=== PATIENT | female | born 1965 | race Caucasian/White ===

== ENCOUNTER 2023-08-02 21:32 | Emergency (ER) | payer OTHER, SELFPAY ==
--- NOTE | 2023-08-02 | ECG_ITS ---
Test Reason : HYPERTENSION Blood Pressure : / mmHG Vent. Rate : 072 BPM Atrial Rate : 072 BPM P-R Int : 174 ms QRS Dur : 070 ms QT Int : 402 ms P-R-T Axes : 052 006 036 degrees QTc Int : 440 ms Normal sinus rhythm Normal ECG When compared with ECG of 13-AUG-2015 05:04, No significant change was found Referred By: Generic ED Physician Electronically Signed By:CHRISTOPHER PIEDRA MD
[2023-08-02 21:33] VITALS: BP 190/86; PULSE 69; RESP 18; TEMP 36.7; O2SAT 99; BMI 34.7
--- NOTE | 2023-08-02 21:46 | MHC.EDTECH ---
Patient brought into triage area,EKG taken per order and signed by provider,labs drawn and sent to lab.
[2023-08-02 21:50] LABS: MANUAL DIFF FLAG NO
[2023-08-02 21:52] LABS: Basophils Absolute Auto 0.1 X10*3/uL (0.0-0.2); Basophils Percent Auto 0.8 % (0-2); Eosinophils Absolute Auto 0.2 X10*3/uL (0.0-0.4); Eosinophils Percent Auto 2.6 % (0-4); Hemoglobin 13.3 g/dl (12.0-16.0); Imm Gran Abs Auto 0.02 X10*3/uL (0.00-0.03); Imm Gran Pct Auto 0.3 % (0.0-0.4); Lymphocytes Absolute Auto 2.9 X10*3/uL (1.2-4.9); Lymphocytes Percent Auto 37.3 % (20-40); Mean Corpuscular HGB Conc 33.3 g/dl (31.0-35.0); Mean Corpuscular Hemoglobin 29.8 pg (27.0-33.0); Mean Corpuscular Volume 89.7 fL (80.0-98.0); Mean Platelet Volume 9.3 fL (9.4-12.3); Monocytes Absolute Auto 0.6 X10*3/uL (0.1-1.2); Monocytes Percent Auto 7.8 % (2-11); Neutrophils Percent Auto 51.2 % (45-73); Platelet Count 315 X10*3/uL (160-400); Red Blood Count 4.46 X10*6/uL (4.20-5.50); Red Cell Distribution Width 13.2 % (11.0-16.0); White Blood Count 7.7 X10*3/uL (4.8-10.8)
[2023-08-02 22:09] LABS: Alanine Aminotransferase 15 U/L (0-31); Albumin Level 4.1 g/dL (3.5-5.0); Alkaline Phosphatase 92 U/L (39-117); Anion Gap 15 (12-20); Aspartate Amino Transferase 21 U/L (5-31); Bilirubin Total 0.3 mg/dL (0.0-1.0); Blood Urea Nitrogen 15 mg/dL (9-16); Calcium 9.5 mg/dL (8.4-10.2); Carbon Dioxide 23 mmol/L (22-29); Chloride 105 mmol/L (96-108); Creatinine Clr Calc Pharmacy 59.8; Estimated Glomerular Filt Rate 53; Glucose Random 87 mg/dL (60-115); Potassium 4.7 mmol/L (3.3-5.1); Sodium 138 mmol/L (135-145); Total Protein 7.5 g/dL (6.5-8.0)
[2023-08-03 01:03] VITALS: BP 150/85; PULSE 79; RESP 18; TEMP 36.6; O2SAT 97
--- NOTE | 2023-08-03 01:45 | ED_ITS ---
HPI - General Adult General Chief complaint: General Medical Stated complaint: high blood pressure Time Seen by Provider: 08/03/23 01:10 Source: patient Mode of arrival: ambulatory Limitations: no limitations History of Present Illness HPI narrative: 57 yo female with no hx of HTN but strong fam hx and multiple family members with HTN she has never been on meds before BP up above 150 for days was going to see PCP. Today had headache and family urged her to come. No new changes in life. MD complaint: HTN Onset (ago): day(s) (4) Location: head Radiation: non-radiation Severity: mild Quality: aching Pain Consistency: intermittent Relieving factors: none Exacerbating factors: none Associated symptoms: denies other symptoms Treatments prior to arrival: none Related Data Home Medications ?Medication ?Instructions ?Recorded ?Confirmed naproxen 500 mg tablet 500 mg PO BID 01/04/20 Previous Rx's ?Medication ?Instructions ?Recorded lisinopril 5 mg tablet 5 mg PO DAILY #30 tabs 08/03/23 Allergies Allergy/AdvReac Type Severity Reaction Status Date / Time No Known Allergies Allergy Verified 08/02/23 21:37 [No Known Allergies*] Review of Systems 2 Review of Systems: Constitutional : No Fever, No Chills, No Fatigue ENT/Mouth : No sore throat, No Rhinorrhea Eyes: No Eye Pain, No Swelling, No Redness Cardiovascular : No Chest Pain, No SOB, No Dyspnea on Exertion Respiratory : No Cough, No Sputum Gastrointestinal : No Nausea, No Vomiting, No Diarrhea, No abdominal Pain Genitourinary : No Dysuria, No Urinary Frequency, No Hematuria, Musculoskeletal : No joint pain, No Myalgias, No Joint Swelling Skin : No Skin Lesions, No rash Neuro : No Weakness, No Numbness, No Dizziness, positive Headache Psych : No Anxiety/Panic, No Depression Heme/Lymph: No Bruising, No Bleeding,No Lymphadenopathy Endocrine : No Polyuria, No Polydipsia All other systems reviewed and are negative [facility] Past Medical History Attestation statement: The following information was validated with the patient. Medical History (Updated 08/03/23 @ 01:56 by Valentina Rogers DO) No pertinent past medical history Social History Social History (Updated 08/03/23 @ 01:56 by Valentina Rogers DO) Patient Tobacco Use Status: Never used Tobacco Physical Exam ED Vital Signs: Vital Signs - 24 hr 08/02/23 21:33 08/03/23 01:03 Temperature 98.0 F 97.9 F Pulse Rate 69 79 Respiratory Rate 18 18 Blood Pressure 190/86 H 150/85 H Pulse Oximetry 99 97 Oxygen Delivery Method Room Air Room Air BMI result Body Mass Index 34.7 Appearance: Alert. Oriented X3. No acute distress. Eyes: Pupils equal, round and reactive to light. ENT: Pharynx normal. Neck: Normal inspection. Neck supple. CVS: Normal heart rate and rhythm. Pulses normal. Respiratory: No respiratory distress. Breath sounds normal. Abdomen: Soft and nontender. Skin: Skin warm and dry. Normal skin color. Normal skin turgor. Extremities: No lower extremity edema. No calf ttp Neuro: Oriented X 3. No motor deficit. No sensory deficit. Medical Decision Making Medical Decision Making [facility] Narrative: 57 yo female with recent elevated BP readings at home was going to follow up with PCP but then today had mild headache no CP has normal neuro exam not toxic no severe headache no signs of end organ damage has strong fam hx of HTN at this time after discusison with start on lisinopril and she will see her doctor. BPs have been consistently 150s and above at home. Differential Diagnosis Differential Diagnoses: The differential diagnosis associated with the presentation includes chronic HTN no signs of end organ damage Admission/Observation Consideration of admission/observation: Escalation of care including admission/observation considered BP 150s recent elevated readings has chronic ankle edema already I am going to start on lisinopril amlodipine not appropriate given ankle edema no signs of end organ damage Lab Data [facility] Lab Attestation statement: I reviewed the patient's lab results. 08/02/23 21:41 08/02/23 21:41 Labs: Lab Results 08/02/23 Range/Units 21:41 WBC 7.7 (4.8-10.8) X10*3/uL RBC 4.46 (4.20-5.50) X10*6/uL Hgb 13.3 (12.0-16.0) g/dl Hct 40.0 (37.0-47.0) % MCV 89.7 (80.0-98.0) fL MCH 29.8 (27.0-33.0) pg MCHC 33.3 (31.0-35.0) g/dl RDW 13.2 (11.0-16.0) % Plt Count 315 (160-400) X10*3/uL MPV 9.3 L (9.4-12.3) fL Immature Gran % (Auto) 0.3 (0.0-0.4) % Neut % (Auto) 51.2 (45-73) % Lymph % (Auto) 37.3 (20-40) % [place] % (Auto) 7.8 (2-11) % Eos % (Auto) 2.6 (0-4) % Baso % (Auto) 0.8 (0-2) % Lymph # (Auto) 2.9 (1.2-4.9) X10*3/uL [place] # (Auto) 0.6 (0.1-1.2) X10*3/uL Eos # (Auto) 0.2 (0.0-0.4) X10*3/uL Baso # (Auto) 0.1 (0.0-0.2) X10*3/uL Abs Immat Gran (auto) 0.02 (0.00-0.03) X10*3/uL Absolute Neuts (auto) 4.0 (2.0-8.3) x10*3/uL Absolute Nucleated RBC 0.000 (0.0-0.012) X10*3/uL Nucleated RBC % (auto) 0.0 (0.0-0.2) /100WBC Sodium 138 (135-145) mmol/L Potassium 4.7 (3.3-5.1) mmol/L Chloride 105 (96-108) mmol/L Carbon Dioxide 23 (22-29) mmol/L Anion Gap 15 (12-20) BUN 15 (9-16) mg/dL Creatinine 1.07 (0.5-1.4) mg/dL Estim Creat Clear Calc 59.8 Estimated GFR 53 Random Glucose 87 (60-115) mg/dL Calcium 9.5 (8.4-10.2) mg/dL Total Bilirubin 0.3 (0.0-1.0) mg/dL AST 21 (5-31) U/L ALT 15 (0-31) U/L Alkaline Phosphatase 92 (39-117) U/L Total Protein 7.5 (6.5-8.0) g/dL Albumin 4.1 (3.5-5.0) g/dL Independent Interpretation I performed an independent interpretation of an: EKG Interpretation: Rate: 72 Rhythm: NSR [place]: left Normal P waves. Normal [place]. Normal QRS complex. ST T wave : no TAHIR qTC: 440 prior studies: no acute ischemia The study has been interpreted contemporaneously by me. . Prescription Management I considered prescription management with: Other Discharge Plan Discharge Clinical Impression: HTN (hypertension) Qualifiers: Hypertension type: unspecified Qualified Code(s): I10 - Essential (primary) hypertension Patient Disposition: Home, Self-Care Instructions: Lisinopril (By mouth), Hypertension (ED) Additional Instructions: return for worsening symptoms - chest pain, worsening headaches, tongue swelling, persistent cough or any symptoms please follow up with your primary care doctor as soon as possible Prescriptions: New lisinopril 5 mg tablet 5 mg PO DAILY Qty: 30 0RF No Action naproxen 500 mg tablet 500 mg PO BID Stand Alone Forms: Work/School Release Print Language: [place]ese
[2023-08-03 02:01] VITALS: BP 150/85; PULSE 79; RESP 18; TEMP 36.6; O2SAT 97
== END 2023-08-03 02:02 | disposition home or self-care (01) ==
PROVIDERS: Emergency Provider Emergency Medicine; PCP Internal Medicine
DX: I10 Essential (primary) hypertension (principal); R51.9 Headache, unspecified
CPT/HCPCS: 36415; 80053; 85025; 93005; 99283

== ENCOUNTER → 2023-08-02 21:41 | Outpatient (BNV) | payer OTHER, SELFPAY | PROVIDERS: Emergency Provider Emergency Medicine; PCP Internal Medicine; Visit Provider Internal Medicine Cardiovascular Disease | DX: I10 Essential (primary) hypertension (principal) | CPT/HCPCS: 93010 ==